=== PATIENT | male | born 1960 | race Caucasian/White ===

== ENCOUNTER 2018-03-11 13:47 | Outpatient (CLI) | payer OTHER ==
--- NOTE | 2018-03-11 15:36 | CT ---
HIGH RESOLUTION CT CHEST WITHOUT CONTRAST: Technique: Multiple axial tomograms were obtained with thin section images in discontinuous images at 10 mm intervals to assess the interstitium. Indications: Asbestos exposure. Shortness of breath. History of aortic aneurysm. FINDINGS: The exam is not adequate for evaluation of pulmonary nodules. There is interstitial prominence and stranding in the lung bases with early honeycombing posteriorly. Mild interstitial thickening of the periphery of the mid and upper lung williamson. Small blebs are seen along the margin of the upper lung on the right. There is no evidence of pleural thickening or pleur al calcified plaqueing. Tiny calcified granuloma in the left lung base is noted. No evidence of media stinal adenopathy. IMPRESSION: Chronic lung changes are noted with stranding and interstitial prominence in the lung bases with mild honeycombing in the posterior lung bases bilaterally. Mild interstitial prominence in the periphery of the mid and upper lung zones. POS: [facility]
== END 2018-03-11 13:48 | disposition home or self-care (01) ==
LOC: CT 13:47
PROVIDERS: ATTEND Internal Medicine Pulmonary Disease
DX: J84.9 Interstitial pulmonary disease, unspecified (principal); J98.4 Other disorders of lung
CPT/HCPCS: 71250; 94060; 94727; 94729

== ENCOUNTER 2019-04-08 17:01 | Inpatient (IN) | payer OTHER ==
[2019-04-08 17:32] LABS: #Basophils 0.1 thou/uL (0.0-0.2); #Eosinphils 0.1 thou/uL (0.0-0.7); #Lymphocytes 1.6 thou/uL (1.20-3.40); #Monocytes 0.7 thou/uL (0.11-0.59); #Neutrophils 6.2 thou/uL (1.40-6.50); %Basophils 0.6 % (0.0-1.0); %Lymphocytes 18.4 % (21.0-51.0); %Monocytes 7.9 % (0.0-10.0); %Neutrophils 72.2 % (42.0-75.0); Hemoglobin 15.5 g/dL (14.0-18.0); Mean Corpuscular HGB CONC 34.4 g/dL (32.0-36.0); Mean Corpuscular Hemoglobin 31.7 pg (27.0-31.0); Mean Platelet Volume 6.3 fL (7.4-10.4); Platelet Count 221 thou/uL (130-400); RBC Distribution Width 12.3 % (11.5-14.5); Red Blood Cell (RBC) Count 4.88 mill/uL (4.70-6.10); White Blood Cell (WBC) Count 8.6 thou/uL (4.8-10.8)
[2019-04-08 17:51] LABS: ALT (SGPT) 53 U/L (8-55); AST (SGOT) 29 U/L (5-34); Albumin 4.8 g/dL (3.5-5.0); Alkaline Phosphatase 87 U/L (40-110); Anion Gap 13 mmol/L (10-20); BUN (Urea Nitrogen) 12 mg/dL (8.4-25.7); Calc. Creatinine Clearance 0 mL/min (70-130); Calcium 10.2 mg/dL (7.8-10.44); Carbon Dioxide 28 mmol/L (22-29); Chloride 99 mmol/L (98-107); Estimated GFR-MDRD 81; Globulin 2.8 g/dL (2.4-3.5); Glucose 139 mg/dL (70-105); Potassium 3.8 mmol/L (3.5-5.1); Protein, Total 7.6 g/dL (6.0-8.3); Sodium 136 mmol/L (136-145)
[2019-04-08 20:20] LABS: Bilirubin Negative (Negative); Blood, Urine Negative (Negative); Clarity Clear (Clear); Glucose, Urine (Dipstick) Greater than 1000 mg/dL (Negative); Leukocyte Negative Leu/uL (Negative); Nitrite Negative (Negative); Protein, Urine (Dipstick) Negative (Neg-Trace); Urobilinogen Normal mg/dL (Less than 2)
[2019-04-08] MEDS ORDERED: Levofloxacin 500 mg/D5W 100 ml Premix Bag ONE (21:36)
--- NOTE | 2019-04-08 21:46 | RAD ---
EXAM: Chest PA and lateral: HISTORY: Dyspnea. Pneumonia. Pulmonary fibrosis. COMPARISON: 04/08/2019 at 11:54 AM FINDINGS: Heart: Normal cardiac silhouette Aorta: Unremarkable Pulmonary vessels: Normal Costophrenic angles: Costophrenic angles are clear. Lungs: No consolidation or masses. Increased interstitial opacities are preserved on chronic change. Lung volumes continue to be diminished. Pneumothorax: No pneumothorax Osseous structures: No osseous abnormalities IMPRESSION: 1. Chronic changes lung parenchyma. No significant change since examination performed earlier today.
[2019-04-08] MEDS ORDERED: methylPREDNISolone Sod Succ/PF 125 MG/2 ML VIAL ONE (22:10)
[2019-04-08 23:09] LABS: CKMB 2.2 ng/mL (0-6.6)
[2019-04-09] MEDS ORDERED: Magnesium 2 GM/50 ML 2 GM in Premix Bag 1 BAG IVPB SCH (00:15)
[2019-04-09 00:52] VITALS: BMI 32.8
[2019-04-09 01:47] LABS: Troponin I 0.029 ng/mL (< 0.028)
[2019-04-09] MEDS ORDERED: Enalaprilat Dihydrate 1.25 MG/ML VIAL SLOW IVP PRN (02:43)
[2019-04-09] MEDS ORDERED: cloNIDine 0.1 MG TAB PO PRN (02:43)
--- NOTE | 2019-04-09 03:02 | HP ---
Patient was seen and examined on 04/08/2019. CHIEF COMPLAINT: Shortness of breath. PRIMARY CARE PHYSICIAN: Karri Olsen MD. PRIMARY WELDER FITTER APPRENTICE: Boo Kapoor MD HISTORY OF PRESENT ILLNESS: The patient is a 58-year-old white male with pulmonary fibrosis, presented to the emergency room with worsening shortness of breath of 2 days' duration. Over the last 2 days, the patient developed gradual worsening shortness of breath along with chest tightness and intermittent wheezing. He also had productive cough from yesterday. He felt feverish and his temperature at home was around 100 degrees. He was getting short of breath on [id number] exertion. His O2 saturation dropped below 84%. He was evaluated by his PCP yesterday and was advised to go to the emergency room if his oxygen drops below 84%. He has history of pulmonary fibrosis and had several episodes of pneumonia in the past. 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 In the emergency room, his initial vital signs showed temperature 98.8, respirations of 18, pulse of 93 with a blood pressure 137/80 with O2 saturation 72% on room air. He was started on supplemental oxygen. He received Solu-Medrol, Levaquin, and IV fluid in the emergency room. PAST MEDICAL HISTORY: 1. Pulmonary fibrosis. 2. Hypertension. 3. Diabetes mellitus type 2. 4. Hyperlipidemia. 5. Recurrent pneumonias. PAST SURGICAL HISTORY: 1. Abdominal aortic aneurysm repair. 2. Hernia repair. 3. Knee surgeries. ALLERGIES: THE PATIENT IS ALLERGIC TO PENICILLIN AND SULFA. CURRENT HOME MEDICATIONS: 1. Lipitor 10 mg daily. 2. Wellbutrin 300 mg daily. 3. Prevacid 30 mg daily. 4. Lisinopril 10 mg daily. 5. Meloxicam 7.5 mg daily. 6. Metformin 1000 mg b.i.d. SOCIAL HISTORY: The patient is a former smoker. He quit smoking 20 years ago. He smoked 1-1/2 pack a day for approximately 20 years. He drinks alcohol occasionally. He is full code and his is the decision maker. FAMILY HISTORY: Father with glioblastoma. Mother with renal failure. Grandparents with heart disease. REVIEW OF SYSTEMS: All other review of systems was reviewed and was found negative. PHYSICAL EXAMINATION: VITAL SIGNS: As discussed above. GENERAL: A 58-year-old male in mild respiratory distress. HEENT: Head, atraumatic and normocephalic. Sclerae anicteric. Moist mucous membranes. No oral lesion. NECK: Supple. No JVD appreciated. No carotid bruit. LUNGS: Showed rales at bases with scattered rhonchi. No significant wheezing. Minimal accessory muscle use. HEART: S1, S2 present. Regular rate and rhythm. No rubs or gallops. ABDOMEN: Soft, nontender. Bowel sounds present. EXTREMITIES: No edema or calf tenderness. NEUROLOGIC: Grossly nonfocal. Moves all 4 extremities. PSYCHIATRY: Alert, awake, and oriented x3. SKIN: Warm and dry. LYMPH NODES: No palpable lymph nodes in the neck. PERIPHERAL VASCULAR: Radial pulses palpable bilaterally. MUSCULOSKELETAL: No joint swelling or tenderness. LABORATORY FINDINGS: CBC showed WBC 8.6 with hemoglobin 15.5, hematocrit 44.9, platelet 221. Chemistry showed sodium 136, potassium 3.8, chloride 99, bicarb 28, BUN of 12, creatinine 0.95. Troponin was 0.046 with CK-MB of 2.2. Urinalysis was negative for wbc's or bacteria. Chest x-ray by my review showed chronic lung changes. Telemetry monitoring by my review showed sinus rhythm. IMPRESSION: 1. Acute hypoxic respiratory failure. 2. Pulmonary fibrosis with exacerbation. 3. Chronic kidney disease, stage 2. 4. Diabetes mellitus type 2. 5. Hypertension. 6. Anxiety. 7. Hyperlipidemia. 8. Obesity with a BMI of 32.9. 9. History of abdominal aortic aneurysm. 10. Elevated troponin secondary to hypoxia (type 2 myocardial infarction). 11. Hypomagnesemia. PLAN: The patient will be monitored on the telemetry unit. We will continue Levaquin. Nebulizer treatment every 4 hourly. Continue IV steroids. Replace magnesium. Consult Pulmonary, Dr. Rust. Add low-dose aspirin. Resume home medications. Blood cultures have been sent. Job ID: [id number]
[2019-04-09] MEDS ORDERED: Ondansetron PF 4 MG/2 ML Vial IVP PRN (03:06)
[2019-04-09] MEDS ORDERED: Calcium Carbonate 500 MG ChewTAB PO PRN (03:06)
[2019-04-09] MEDS ORDERED: Insulin Regular 300 UNITS/3 ML VIAL SC PRN (03:06)
[2019-04-09] MEDS ORDERED: Ondansetron ODT 4 MG TAB PO PRN (03:06)
[2019-04-09] MEDS ORDERED: Dextrose 50% Abboject 50 ML SYRINGE SLOW IVP PRN (03:06)
[2019-04-09] MEDS ORDERED: Dextrose 5% in Water 1,000 ML IV PRN (03:06)
[2019-04-09] MEDS ORDERED: Acetaminophen 325 MG TAB PO PRN (03:06)
[2019-04-09] MEDS ORDERED: Senokot S 8.6-50 MG TAB PO PRN (03:06)
[2019-04-09] MEDS: methylPREDNISolone Sod Succ 40 MG VIAL IVP SCH ×3 (05:36→17:08)
[2019-04-09] MEDS: Aspirin 81 mg Enteric Coated Tablet PO SCH (08:00)
[2019-04-09] MEDS: Bupropion 150 MG XL TAB PO SCH (08:00)
[2019-04-09] MEDS: Lisinopril 10 MG TAB PO SCH (08:01)
[2019-04-09] MEDS: guaiFENesin ER 600 MG TAB PO SCH ×2 (08:01→20:32)
[2019-04-09] MEDS: Atorvastatin Calcium 10 MG TAB PO SCH (08:01)
[2019-04-09] MEDS: metFORMIN 500 MG TAB PO SCH ×2 (08:01→17:08)
--- NOTE | 2019-04-09 12:22 | PDOC.HOSPP ---
- Subjective Encounter Date: 04/09/19 Encounter Time: 11:00 Subjective: sob is better, is amb in room (his O2 cord is short to amb more) he doesn't use oxygen at home was diagnosed with pulm fibrosis almost a year back by , not on any meds - Objective Vital Signs & Weight: Vital Signs (12 hours) Temp Pulse Resp BP BP Pulse Ox 04/09/19 11:29 75 18 97 04/09/19 07:53 97.6 F 83 20 132/66 92 L 04/09/19 07:13 62 14 100 04/09/19 03:44 95 04/09/19 03:28 98.2 F 70 18 123/56 L 93 L 04/09/19 01:00 97.4 F L 81 16 141/81 H 95 Weight Weight 216 lb 1.6 oz I&O: 04/08/19 04/09/19 04/10/19 06:59 06:59 06:59 Intake Total 180 Output Total 525 Balance -345 Result Diagrams: 04/08/19 17:15 04/08/19 17:15 Additional Labs: Accuchecks 04/09/19 10:56 POC Glucose 221 H Hospitalist ROS - Medication Medications: Active Medications Generic Name Dose Route Start Last Admin Trade Name Freq PRN Reason Stop Dose Admin Albuterol/Ipratropium 3 ml 04/09/19 07:00 04/09/19 11:29 Duoneb NEB 3 ml [id number] EDER Administration Aspirin 81 mg 04/09/19 09:00 04/09/19 08:00 Ecotrin PO 81 mg DAILY EDER Administration Atorvastatin Calcium 10 mg 04/09/19 09:00 04/09/19 08:01 Lipitor PO 10 mg DAILY EDER Administration Bupropion HCl 300 mg 04/09/19 09:00 04/09/19 08:00 Wellbutrin Xl PO 300 mg QAM EDER Administration Guaifenesin 600 mg 04/09/19 09:00 04/09/19 08:01 Mucinex PO 600 mg Q12HR EDER Administration Lisinopril 10 mg 04/09/19 09:00 04/09/19 08:01 Zestril PO 10 mg DAILY EDER Administration Metformin HCl 1,000 mg 04/09/19 08:00 04/09/19 08:01 Glucophage PO 1,000 mg BID-WM EDER Administration Methylprednisolone Sodium Succinate 40 mg 04/09/19 06:00 04/09/19 11:41 Solu-Medrol IVP 40 mg Q6HR EDER Administration Pantoprazole Sodium 40 mg 04/09/19 09:00 04/09/19 08:01 Protonix PO 40 mg DAILY EDER Administration - Exam General Appearance: awake alert Eye: PERRL, anicteric sclera ENT: no oropharyngeal lesions, moist mucosa Neck: supple, no JVD Heart: RRR, no gallops Respiratory: no wheezes, no rales, rhonchi Gastrointestinal: soft, non-tender, non-distended, normal bowel sounds Extremities: no cyanosis, no edema Neurological: cranial nerve grossly intact, no focal deficits Psychiatric: normal affect, A&O x 3 Hosp A/P (1) ac pulm fibrosis flare up Status: Acute (2) DM type 2 (diabetes mellitus, type 2) Status: Chronic Qualifiers: Diabetes mellitus terminal press operator insulin use: without terminal press operator use (3) Dyslipidemia Code(s): E78.5 - HYPERLIPIDEMIA, UNSPECIFIED Status: Chronic (4) HTN (hypertension) Code(s): I10 - ESSENTIAL (PRIMARY) HYPERTENSION Status: Chronic Qualifiers: Hypertension type: essential hypertension Qualified Code(s): I10 - Essential (primary) hypertension (5) Depression Code(s): F32.9 - MAJOR DEPRESSIVE DISORDER, SINGLE EPISODE, UNSPECIFIED Status : Chronic Qualifiers: Depression Type: unspecified Qualified Code(s): F32.9 - Major depressive disorder, single episode, unspecified - Plan is on steroids, nebs, pulm consultation continue asp, lipitor, buproprion, metformin and lisinopril tx to med floor to amb as tolerated may taper and dc oxygen for spo2 of 90%
--- NOTE | 2019-04-09 12:54 | CON ---
DATE OF CONSULTATION: 04/09/2019 CONSULTING PHYSICIAN: Man Horvath MD REASON FOR CONSULTATION: Hypoxemia. HISTORY OF PRESENT ILLNESS: Mr. Dunbar is a 58-year-old male, who was diagnosed with IPF about [address] Kap[address] 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 He normally does not do application of chemicals himself. Several days ago, he applied Scotchgard with an atomizer to someone's couch. He says he was wearing protection, but it sounds like he did accidentally inhale some of the fumes. At that point, he began having chest tightness, intermittent wheezing. He saw his primary care doctor, and was noted to be hypoxic. He was diagnosed with pneumonia and started on some antibiotics. He was told to come to the emergency room if his O2 saturation dropped below 84%. He found the O2 saturation to be 68% at some point. He came into the hospital, where he was found to be hypoxic with O2 saturations in the 70s. He was started on oxygen, and he has currently been admitted for treatment of pneumonia. PAST MEDICAL HISTORY: 1. IPF. 2. Hypertension. 3. Diabetes mellitus type 2. 4. Hyperlipidemia. PAST SURGICAL HISTORY: 1. Abdominal aortic aneurysm repair. 2. Hernia repair. 3. Knee surgery. ALLERGIES: PENICILLIN AND SULFA. MEDICATIONS: Prior to admission, 1. Lipitor. 2. Wellbutrin. 3. Prevacid. 4. Lisinopril. 5. Meloxicam. 6. Metformin. 7. Of note, he was taking no antifibrotic agents for IPF. SOCIAL HISTORY: Quit smoking over 20 years ago. 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 He does frequent travel. He does not consume any significant quantities of alcohol. FAMILY MEDICAL HISTORY: Remarkable for glioblastoma and renal failure. REVIEW OF SYSTEMS: He denies any fever, chills, nausea, vomiting, hematemesis, melena, hematochezia, hematuria, or dysuria. PHYSICAL EXAMINATION: VITAL SIGNS: Temperature 97.6, pulse 83, respirations 20, O2 saturation 93% on 3 L, and blood pressure 122/66. GENERAL: He is awake and alert, and in no acute distress. HEENT: Unremarkable. NECK: No adenopathy, JVD, or bruits. LUNGS: He has inspiratory crackles harsh at the bases extending toward the apices, best heard posteriorly. CARDIOVASCULAR: S1 and S2 regular without murmur. ABDOMEN: Soft, nontender, nondistended. EXTREMITIES: No clubbing, cyanosis, or edema. LABORATORY DATA: White blood cell count 8.6, hematocrit 44.9, and platelet count 221. Sodium 136, potassium 3.8, chloride 99, CO2 of 28, BUN 12, creatinine 0.9, glucose 139. Troponin 0.029. ASSESSMENT: This patient appears to be having an exacerbation of his idiopathic pulmonary fibrosis. I doubt that this is infectious pneumonia. His physical exam hints that the IPF may be progressing at a rapid pace. He could have decompensation due to recent exposure to chemicals. PLAN: I will go ahead and repeat a CT of the chest and repeat his PFTs. This is mainly to see if the disease is advancing. He is on IV steroids. I would agree with withholding antibiotics at the current time. The patient will likely need to go home on oxygen. Job ID: [id number]
--- NOTE | 2019-04-09 15:36 | CT ---
CT CHEST WITHOUT CONTRAST HIGH RESOLUTION 04/09/19 PROVIDED CLINICAL HISTORY: Shortness of breath. History of pulmonary fibrosis. FINDINGS: Comparison is made with the study dated 03/11/18. Thinly collimated, widely spaced axial imaging was o btained through the chest in the supine and prone positions. Areas of macrocystic honeycombing are again seen involving the dependent portions of the lower lobes bilaterally, appearing similar to the prior examination. There are associated traction bronchiectatic changes. There is interval development of bilateral patchy and diffuse ground glass opacity. The degree of sub pleural interstitial thickening is somewhat less than would be expected on the basis of the presence of honeycombing. The central airway appears patent and of normal caliber as visualized. There is no gross evidence for thoracic lymph node enlargement. Assessment for solitary pulmonary nodules is limited given the tech nique utilized. Vascular calcification is seen. There is no gross pleural fluid or evidence for pneum othorax. IMPRESSION: 1. Macrocystic honeycombing is again demonstrated associated with traction bronchiectasis involv ing both lower lobes, compatible with the provided clinical history of pulmonary fibrosis and the CT appearance of which is compatible with probable UIP. 2. Development of multifocal diffuse ground glass opacity, suggesting a superimposed alveolitis. POS: OFF
[2019-04-09] MEDS: Insulin Regular 300 UNITS/3 ML VIAL SC PRN (17:30)
[2019-04-09] MEDS: Enoxaparin Sodium 40 MG/0.4 ML SYRINGE SC SCH (20:33)
[2019-04-10] MEDS: Bacteriostatic Water 30 ML VIAL FS PRN ×2 (00:17→05:42)
[2019-04-10] MEDS: methylPREDNISolone Sod Succ 40 MG VIAL IVP SCH ×5 (00:44→23:32)
[2019-04-10 05:17] LABS: #Lymphocytes 0.9 thou/uL (1.20-3.40); #Monocytes 0.4 thou/uL (0.11-0.59); #Neutrophils 12.8 thou/uL (1.40-6.50); %Basophils 0.1 % (0.0-1.0); %Eosinophils 0.1 % (0.0-10.0); %Lymphocytes 6.5 % (21.0-51.0); %Neutrophils 90.4 % (42.0-75.0); Hemoglobin 13.6 g/dL (14.0-18.0); Mean Corpuscular HGB CONC 34.5 g/dL (32.0-36.0); Mean Corpuscular Hemoglobin 32.7 pg (27.0-31.0); Mean Corpuscular Volume 94.8 fL (78.0-98.0); Mean Platelet Volume 6.5 fL (7.4-10.4); Platelet Count 214 thou/uL (130-400); RBC Distribution Width 12.2 % (11.5-14.5); Red Blood Cell (RBC) Count 4.16 mill/uL (4.70-6.10); White Blood Cell (WBC) Count 14.1 thou/uL (4.8-10.8)
[2019-04-10 05:39] LABS: ALT (SGPT) 35 U/L (8-55); AST (SGOT) 15 U/L (5-34); Albumin 4.1 g/dL (3.5-5.0); Alkaline Phosphatase 76 U/L (40-110); Anion Gap 16 mmol/L (10-20); BUN (Urea Nitrogen) 19 mg/dL (8.4-25.7); Bilirubin, Total 0.4 mg/dL (0.2-1.2); Calc. Creatinine Clearance 106 mL/min (70-130); Calcium 8.9 mg/dL (7.8-10.44); Carbon Dioxide 22 mmol/L (22-29); Chloride 100 mmol/L (98-107); Estimated GFR-MDRD 74; Globulin 2.3 g/dL (2.4-3.5); Glucose 268 mg/dL (70-105); Magnesium 1.9 mg/dL (1.6-2.6); Potassium 4.5 mmol/L (3.5-5.1); Protein, Total 6.4 g/dL (6.0-8.3); Sodium 133 mmol/L (136-145)
[2019-04-10] MEDS: Insulin Regular 300 UNITS/3 ML VIAL SC PRN ×3 (05:55→17:39)
[2019-04-10] MEDS: Aspirin 81 mg Enteric Coated Tablet PO SCH (08:52)
[2019-04-10] MEDS: metFORMIN 500 MG TAB PO SCH ×2 (08:52→17:39)
[2019-04-10] MEDS: Atorvastatin Calcium 10 MG TAB PO SCH (08:53)
[2019-04-10] MEDS: Lisinopril 10 MG TAB PO SCH (08:53)
[2019-04-10] MEDS: guaiFENesin ER 600 MG TAB PO SCH ×2 (08:53→20:29)
[2019-04-10] MEDS: Bupropion 150 MG XL TAB PO SCH (09:04)
--- NOTE | 2019-04-10 11:21 | PRG ---
DATE OF SERVICE: 04/10/2019 SUBJECTIVE: Mr. Dunbar is feeling about the same. He is still requiring a significant amount of oxygen. OBJECTIVE: VITAL SIGNS: Temperature is 97.5, pulse 85, respirations 18, O2 saturation 95% on 2 L, and blood pressure 118/65. HEENT: Unremarkable. NECK: No JVD. LUNGS: Inspiratory crackles bilaterally. CARDIAC: S1, S2. Regular. ABDOMEN: Soft. EXTREMITIES: No edema. His CT of the chest demonstrated continued honeycombing changes and traction bronchiectasis. There also appears to be some active alveolitis, which may be related to the recent exposure. His PFTs show approximately 10% to 15% decrease in his FEV1/FVC compared to a year ago. His total lung capacity is also down about 15%. His DLCO is decreased about 20% to 41% predicted. IMPRESSION: Idiopathic pulmonary fibrosis, perhaps with active valvulitis from recent exposure. PLAN: He is going to need home oxygen without a doubt. I would keep him on steroids and these will be tapered slowly over several weeks. I think he would probably be a good candidate for Ofev, which can be started as an outpatient. He can probably go home once his oxygen set up, but that may not be until Friday. Job ID: [id number]
[2019-04-10] MEDS: Empagliflozin [Jardiance] 10 MG PO SCH (16:02)
[2019-04-10] MEDS ORDERED: Dextrose 5% in Water 1,000 ML IV PRN (18:07)
[2019-04-10] MEDS ORDERED: Dextrose 50% Abboject 50 ML SYRINGE SLOW IVP PRN (18:07)
--- NOTE | 2019-04-10 18:16 | PDOC.HOSPP ---
- Subjective Encounter Date: 04/10/19 Subjective: Pt seen feeling better , No distress SOB better - Objective Vital Signs & Weight: Vital Signs (12 hours) Temp Pulse Resp BP BP Pulse Ox 04/10/19 15:57 98.2 F 92 16 130/67 97 04/10/19 11:43 97.5 F L 88 16 137/71 96 04/10/19 10:36 75 18 95 04/10/19 08:00 99 04/10/19 07:39 97.5 F L 64 16 118/65 99 04/10/19 07:33 66 18 96 Weight Admit Weight 216 lb 1.6 oz Weight 216 lb 1.6 oz I&O: 04/09/19 04/10/19 04/11/19 06:59 06:59 06:59 Intake Total 180 Output Total 525 Balance -345 Result Diagrams: 04/10/19 04:58 04/10/19 04:58 Additional Labs: Accuchecks 04/10/19 04/10/19 04/10/19 15:58 10:56 04:14 POC Glucose 265 H 267 H 252 H 04/09/19 04/09/19 04/09/19 20:27 17:17 05:47 POC Glucose 280 H 247 H 182 H Hospitalist ROS - Review of Systems Constitutional: denies: fever Eyes: denies: pain ENT: denies: ear pain Respiratory: reports: shortness of breath. denies: cough Cardiovascular: denies: chest pain Gastrointestinal: denies: nausea Genitourinary: denies: dysuria Musculoskeletal: denies: neck pain Skin: denies: rash Neurological: denies: weakness - Medication Medications: Active Medications Generic Name Dose Route Start Last Admin Trade Name Freq PRN Reason Stop Dose Admin Albuterol/Ipratropium 3 ml 04/09/19 07:00 04/10/19 14:12 Duoneb NEB 3 ml [id number] EDER Administration Aspirin 81 mg 04/09/19 09:00 04/10/19 08:52 Ecotrin PO 81 mg DAILY EDER Administration Atorvastatin Calcium 10 mg 04/09/19 09:00 04/10/19 08:53 Lipitor PO 10 mg DAILY EDER Administration Bupropion HCl 300 mg 04/09/19 09:00 04/10/19 09:04 Wellbutrin Xl PO 300 mg QAM EDER Administration Enoxaparin Sodium 40 mg 04/09/19 21:00 04/09/19 20:33 Lovenox SC Not Given 2100 EDER Guaifenesin 600 mg 04/09/19 09:00 04/10/19 08:53 Mucinex PO 600 mg Q12HR EDER Administration Lisinopril 10 mg 04/09/19 09:00 04/10/19 08:53 Zestril PO 10 mg DAILY EDER Administration Metformin HCl 1,000 mg 04/09/19 08:00 04/10/19 17:39 Glucophage PO 1,000 mg BID-WM EDER Administration Methylprednisolone Sodium Succinate 40 mg 04/09/19 06:00 04/10/19 17:39 Solu-Medrol IVP 40 mg Q6HR EDER Administration Pantoprazole Sodium 40 mg 04/09/19 09:00 04/10/19 08:53 Protonix PO 40 mg DAILY EDER Administration Empagliflozin [ 0 each 04/09/19 09:00 04/10/19 16:02 Jardiance] 10 Mg PO Not Given DAILY EDER Sterile Water 1 ml 04/09/19 00:07 04/10/19 05:42 Bacteriostatic Water FS 1 ml PRN PRN Administration RECONSTITUTION - Exam General Appearance: awake alert Eye: PERRL ENT: normocephalic atraumatic Neck: supple Heart: no murmur Respiratory: negative: no wheezes Gastrointestinal: soft Extremities: no cyanosis Neurological: cranial nerve grossly intact Musculoskeletal: normal tone Psychiatric: normal affect Hosp A/P - Plan Acute Hypoxic resp failure due to Acute pulm fibrosis flare Improving Saturating normal on RA but gets Desat on exertion , Continue steroids , Needs Home O2 on dc DM type 2 worsening due to steroids added high humolog scale Dyslipidemia Continue statin HTN Continue lisinopril Depression Continue home meds DVT/GI prophyalxis PLan Discussed with pt and nursing staff
[2019-04-10] MEDS: HumaLOG 300 UNITS/3 ML VIAL SC PRN (20:29)
[2019-04-10] MEDS: Enoxaparin Sodium 40 MG/0.4 ML SYRINGE SC SCH (20:34)
[2019-04-11] MEDS: methylPREDNISolone Sod Succ 40 MG VIAL IVP SCH (05:55)
[2019-04-11] MEDS: HumaLOG 300 UNITS/3 ML VIAL SC PRN ×4 (06:01→20:52)
[2019-04-11] MEDS: Atorvastatin Calcium 10 MG TAB PO SCH (07:54)
[2019-04-11] MEDS: metFORMIN 500 MG TAB PO SCH ×2 (07:54→16:57)
[2019-04-11] MEDS: Aspirin 81 mg Enteric Coated Tablet PO SCH (07:54)
[2019-04-11] MEDS: guaiFENesin ER 600 MG TAB PO SCH ×2 (07:54→20:52)
[2019-04-11] MEDS: Lisinopril 10 MG TAB PO SCH (07:54)
[2019-04-11] MEDS: Empagliflozin [Jardiance] 10 MG PO SCH (07:55)
[2019-04-11] MEDS: Bupropion 150 MG XL TAB PO SCH (09:53)
--- NOTE | 2019-04-11 11:33 | PRG ---
DATE OF SERVICE: 04/11/2019 SUBJECTIVE: He feels better. He says he is actually maintaining normal O2 sats while at rest, but still desaturates when he walks. OBJECTIVE: VITAL SIGNS: His temperature is 98, pulse 81, respirations 16, and O2 saturation 98% on 2 L, 86% when walking on room air. HEENT: Unremarkable. NECK: No adenopathy or JVD. LUNGS: Diffuse inspiratory crackles bilaterally. CARDIAC: S1 and S2, regular. ABDOMEN: Soft. EXTREMITIES: No edema. ASSESSMENT: Idiopathic pulmonary fibrosis with some component of alveolitis from exposure to chemicals. PLAN: He does seem to be getting better on the steroids. I continue to maintain that he will probably need oxygen at home for use with exertion. Dr. Kapoor will see him tomorrow. I think he can probably go home once his oxygen is set up. Job ID: [id number]
--- NOTE | 2019-04-11 11:48 | PDOC.HOSPP ---
- Subjective Encounter Date: 04/11/19 Subjective: Pt seen feeling better but gets Desat with minimal activity , no other complaints - Objective Vital Signs & Weight: Vital Signs (12 hours) Temp Pulse Resp BP Pulse Ox 04/11/19 10:07 81 16 98 04/11/19 08:00 98 04/11/19 07:48 98 F 69 16 124/65 97 04/11/19 06:15 89 16 97 Weight Admit Weight 216 lb 1.6 oz Weight 216 lb 1.6 oz I&O: 04/10/19 04/11/19 04/12/19 06:59 06:59 06:59 Intake Total 502 Balance 502 Result Diagrams: 04/10/19 04:58 04/10/19 04:58 Additional Labs: Accuchecks 04/11/19 04/10/19 04/10/19 04:51 19:30 15:58 POC Glucose 251 H 234 H 265 H 04/10/19 04:14 POC Glucose 252 H Hospitalist ROS - Review of Systems Constitutional: denies: fever Eyes: denies: pain ENT: denies: ear pain Respiratory: reports: SOB with excertion. denies: cough Cardiovascular: denies: chest pain Gastrointestinal: denies: nausea Musculoskeletal: denies: neck pain Neurological: denies: weakness - Medication Medications: Active Medications Generic Name Dose Route Start Last Admin Trade Name Freq PRN Reason Stop Dose Admin Acetaminophen 650 mg 04/09/19 03:06 04/11/19 06:01 Tylenol PO 650 mg Q4H PRN Administration Headache/Fever/Mild Pain (1-3) Albuterol/Ipratropium 3 ml 04/09/19 07:00 04/11/19 10:07 Duoneb NEB 3 ml [id number] EDER Administration Aspirin 81 mg 04/09/19 09:00 04/11/19 07:54 Ecotrin PO 81 mg DAILY EDER Administration Atorvastatin Calcium 10 mg 04/09/19 09:00 04/11/19 07:54 Lipitor PO 10 mg DAILY EDER Administration Bupropion HCl 300 mg 04/09/19 09:00 04/11/19 09:53 Wellbutrin Xl PO 300 mg QAM EDER Administration Enoxaparin Sodium 40 mg 04/09/19 21:00 04/10/19 20:34 Lovenox SC Not Given 2100 EDER Guaifenesin 600 mg 04/09/19 09:00 04/11/19 07:54 Mucinex PO 600 mg Q12HR EDER Administration Insulin Human Lispro 0 units 04/10/19 18:07 04/11/19 06:01 Humalog SC 9 unit .AGGRESSIVE SLIDING PRN Administration Aggressive Correctional Scale Insulin Human Lispro 0 units 04/10/19 18:07 04/10/19 20:29 Humalog SC 2 unit .BEDTIME SLIDING SC PRN Administration Bedtime Correctional Scale Lisinopril 10 mg 04/09/19 09:00 04/11/19 07:54 Zestril PO 10 mg DAILY EDER Administration Metformin HCl 1,000 mg 04/09/19 08:00 04/11/19 07:54 Glucophage PO 1,000 mg BID-WM EDER Administration Pantoprazole Sodium 40 mg 04/09/19 09:00 04/11/19 07:54 Protonix PO 40 mg DAILY EDER Administration Empagliflozin [ 0 each 04/09/19 09:00 04/11/19 07:55 Jardiance] 10 Mg PO 1 each DAILY EDER Administration Sterile Water 1 ml 04/09/19 00:07 04/10/19 05:42 Bacteriostatic Water FS 1 ml PRN PRN Administration RECONSTITUTION - Exam General Appearance: awake alert Eye: anicteric sclera ENT: normocephalic atraumatic Neck: supple Heart: negative: no rubs Respiratory: CTAB, no wheezes Gastrointestinal: soft Extremities: no cyanosis Skin: normal turgor Neurological: cranial nerve grossly intact Musculoskeletal: normal tone Psychiatric: normal affect Hosp A/P - Plan Acute Hypoxic resp failure due to Acute pulm fibrosis flare Improving Saturating normal on RA but gets Desat on exertion , Continue steroids , Needs Home O2 on dc DM type 2 worsening due to steroids Continue high humalog scale , steroids changed to po Dyslipidemia Continue statin HTN Continue lisinopril Depression Continue home meds DVT/GI prophyalxis PLan Discussed with pt and nursing staff Possible dc in am
[2019-04-11] MEDS: Enoxaparin Sodium 40 MG/0.4 ML SYRINGE SC SCH (20:48)
[2019-04-11] MEDS: predniSONE 20 MG TAB PO SCH (20:52)
[2019-04-12] MEDS: HumaLOG 300 UNITS/3 ML VIAL SC PRN ×2 (05:35→12:26)
[2019-04-12 07:56] VITALS: TEMP 98.2
[2019-04-12] MEDS: Bupropion 150 MG XL TAB PO SCH (08:46)
[2019-04-12] MEDS: Atorvastatin Calcium 10 MG TAB PO SCH (08:46)
[2019-04-12] MEDS: guaiFENesin ER 600 MG TAB PO SCH (08:47)
[2019-04-12] MEDS: predniSONE 20 MG TAB PO SCH (08:47)
[2019-04-12] MEDS: metFORMIN 500 MG TAB PO SCH (08:47)
[2019-04-12] MEDS: Aspirin 81 mg Enteric Coated Tablet PO SCH (08:47)
[2019-04-12] MEDS: Lisinopril 10 MG TAB PO SCH (08:47)
[2019-04-12] MEDS: Empagliflozin [Jardiance] 10 MG PO SCH (08:47)
--- NOTE | 2019-04-12 10:38 | PRG ---
DATE OF SERVICE: 04/12/2019 SUBJECTIVE: Jarred Dunbar is a 58-year-old gentleman with pulmonary fibrosis, recent exacerbation. He is doing better this morning, still coughing some purulent sputum. OBJECTIVE: VITAL SIGNS: Saturations are 97 on 2 L, temperature 98, blood pressure 130/75. CHEST: Bilateral crackles. CARDIAC: Normal S1 and S2. No gallops. IMPRESSION: Pulmonary fibrosis, superimposed; tracheobronchitis. PLAN: He can be discharged home on tapering dose of prednisone, antibiotics. He will be seen by Pulmonary next week in the office. He is going to require low-flow O2. Job ID: [id number]
[2019-04-12 16:22] VITALS: BP 143/76
--- NOTE | 2019-04-13 08:36 | DIS ---
DATE OF ADMISSION: 04/08/2019 DATE OF DISCHARGE: 04/12/2019 DISPOSITION: The patient was discharged home. FINAL DIAGNOSES: 1. Acute tracheobronchitis. 2. Chronic pulmonary fibrosis. 3. Acute on chronic hypoxic respiratory failure due to pulmonary fibrosis. 4. Diabetes mellitus type 2 with hyperglycemia. 5. Hyperlipidemia. 6. Hypertension. 7. Depression. CONDITION: Stable and improved. DIET: Carbohydrate controlled diet. MEDICATIONS: Please refer to medication discharge reconciliation form. ACTIVITY: As tolerated. Do not over exert yourself, no strenuous activities. DISCHARGE INSTRUCTIONS: If any fevers, chills, nausea, vomiting, chest pain, shortness of breath, bleeding, swelling, weakness, numbness, seek immediate medical attention. CONSULTANTS: 1. Dr. Boo Kapoor. 2. Dr. Ronnie Rust. SIGNIFICANT LABORATORY AND DIAGNOSTIC STUDIES: Includes a CT of the chest without contrast, high resolution, that showed findings compatible with probable pulmonary fibrosis. He will follow up with Dr. Kapoor in 2 weeks. BRIEF HOSPITAL COURSE: Mr. Baron Dunbar is a 58-year-old male with history of pulmonary fibrosis, hypertensive, diabetic, who presented to the emergency room with shortness of breath, was found to have hypoxia, treated with empiric and it got stable. There were no signs of infection. Thus, he did not receive antibiotics. He was seen in consultation by Pulmonary Medicine. His symptoms improved over the next 72 hours. He has been ambulatory, tolerating oral intake. 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 On the day of discharge, during my [id number] meeting with the patient, I discussed all discharge instructions including the need for compliance with medication, followup and when to return to the emergency room for which he has verbalized understanding. Case was also discussed with patient's currently at bedside. All questions were answered. TIME SPENT: Total discharge time spent 35 minutes. Job ID: [id number]
== END 2019-04-12 16:29 | disposition home or self-care (01) | DRG 196 ==
LOC: ERS 17:01 → OBSVTOIN 23:33 → 2NO 23:33 → T4-A 04-09 12:33
PROVIDERS: ADMIT Internal Medicine; ATTEND Internal Medicine
PROC: 3E0234Z Introduction of Serum, Toxoid and Vaccine into Muscle, Percutaneous Approach (ICD-10-PCS; principal; 2019-04-09)
DX: J84.112 Idiopathic pulmonary fibrosis (principal); J96.01 Acute respiratory failure with hypoxia; I38 Endocarditis, valve unspecified; E78.00 Pure hypercholesterolemia, unspecified; I12.9 Hypertensive chronic kidney disease with stage 1 through stage 4 chronic kidney disease, or unspecified chronic kidney disease; N18.2 Chronic kidney disease, stage 2 (mild); E11.22 Type 2 diabetes mellitus with diabetic chronic kidney disease; F41.9 Anxiety disorder, unspecified; E78.5 Hyperlipidemia, unspecified; E66.9 Obesity, unspecified; E83.42 Hypomagnesemia; F32.9 Major depressive disorder, single episode, unspecified; Z96.653 Presence of artificial knee joint, bilateral; T38.0X5A Adverse effect of glucocorticoids and synthetic analogues, initial encounter; J40 Bronchitis, not specified as acute or chronic; Z23 Encounter for immunization; Z87.891 Personal history of nicotine dependence; Z87.01 Personal history of pneumonia (recurrent); Z79.1 Long term (current) use of non-steroidal anti-inflammatories (NSAID); Z68.32 Body mass index [BMI] 32.0-32.9, adult; Z87.09 Personal history of other diseases of the respiratory system; Z88.0 Allergy status to penicillin; Z88.2 Allergy status to sulfonamides; Z79.899 Other long term (current) drug therapy; Z79.84 Long term (current) use of oral hypoglycemic drugs
CPT/HCPCS: 36415; 36416; 71046; 71250; 80053; 81003; 82553; 83605; 83735; 84145; 84484; 85025; 87040; 90471; 90732; 93005; 94060; 94640; 94727; 94729; 96365; 96366; 96375; G0009; J1650; J1815; J1956; J2920; J2930; J3475; J7512; J7620

== ENCOUNTER 2019-04-20 13:56 | Outpatient (CLI) | payer OTHER ==
--- NOTE | 2019-04-20 14:09 | RAD ---
PA AND LATERAL CHEST: HISTORY: Dyspnea. COMPARISON: 04/08/2019 FINDINGS: Heart size appears borderline in size. There is elevation of the right hemidiaphragm. Some minimal pa renchymal change in the right mid lung field and scarring in the lung bases is stable as compared to the prior study. IMPRESSION: Chronic lung change. Stable examination. POS: OFF
== END 2019-04-20 13:57 | disposition home or self-care (01) ==
LOC: RAD 13:56
PROVIDERS: ATTEND Internal Medicine Pulmonary Disease
DX: R06.00 Dyspnea, unspecified (principal)
CPT/HCPCS: 71046

== ENCOUNTER 2020-11-16 11:22 | Outpatient (CLI) | payer OTHER | END 2020-11-16 11:23 | disposition home or self-care (01) | LOC: BICRAD 11:22 | PROVIDERS: ATTEND Internal Medicine | DX: Z02.71 Encounter for disability determination (principal) | CPT/HCPCS: 71046 ==